=== PATIENT | male | born 1950 | race Caucasian/White ===

== ENCOUNTER 2023-11-09 06:23 | Day surgery (SDC) | payer OTHER ==
--- NOTE | 2023-11-07 15:41 | RAD REPORT ---
EXAM DESCRIPTION: RAD - Chest Pa And Lat (2 Views) - 11/07/2023 3:34 pm CLINICAL HISTORY: Pre op pending hernia repair Chest pain. COMPARISON: <Comparisons> FINDINGS: The lungs are clear. The heart is upper limit of normal in size. No displaced fractures. P robable small hiatal hernia. IMPRESSION: No acute or concerning finding suspected. The USPSTF recommends annual screening for lung cancer with low-dose CT (LDCT) in adults aged 50 to 8 0 years who have a 20 pack-year smoking history and currently smoke or have quit within the past 15 y ears.
[2023-11-07 16:30] LABS: Absolute Eosinophils 0.1 K/uL (0-0.5); Absolute Lymphocytes (CBC) 0.9 K/uL (0.7-4.9); Absolute Monocytes 0.5 K/uL (0.1-1.3); Absolute Neutrophil 3.6 K/uL (1.8-8.0); Eosinophils % 1.4 % (0-4.4); Hematocrit 41.6 % (39.6-49.0); Hemoglobin 14.1 g/dL (13.6-17.9); MCH 32.5 pg (27.0-35.0); MCV 95.4 fL (80-100); MPV 9.4 fL (7.6-11.3); Monocytes % 10.2 % (3.3-12.3); Neutrophils % 69.4 % (41.7-73.7); Platelets 223 thou/uL (152-406); RBC Red Blood Cell Count 4.35 M/uL (4.33-5.43); Red Cell Distribution Width 15.5 % (12.1-15.2)
[2023-11-07 16:50] LABS: Anion Gap 10.7 mEq/L (5.0-15.0); Potassium 3.7 mEq/L (3.5-5.1)
--- NOTE | 2023-11-08 16:17 | EKG ---
Test Date: 2023-11-07 Test Time: 15:10:10 Sampling Expert: MEASUREMENT RESULTS: Intervals: Rate: 74 CO: 242 QRSD: 118 QT: 410 QTc: 455 [place]: P: 19 CO: 242 QRS: -78 T: 77 INTERPRETIVE STATEMENTS: Sinus rhythm with 1st degree AV block Left axis deviation Nonspecific intraventricular conduction delay Abnormal ECG Compared to ECG 09/17/1997 22:44:00 First degree AV block now present Left-axis deviation now present Intraventricular conduction delay now present Ventricular premature complex(es) no longer present Electronically Signed On 11-08-23 16:14:49 CDT by Ernie Cueva
[2023-11-09] MEDS ORDERED: NA CHLORIDE 0.9% 1,000 ML ONE (06:45)
[2023-11-09] MEDS ORDERED: FENTANYL CITR 100 MCG/2 ML ONE (07:28)
[2023-11-09] MEDS ORDERED: ONDANSETRON 4 MG/2 ML VIAL ONE (07:28)
[2023-11-09] MEDS ORDERED: LIDOCAINE 2% MPF 5 ML VIAL ONE (07:28)
[2023-11-09] MEDS ORDERED: ROCURONIUM 50 MG/5 ML VIAL IV ONE ×2 (07:28→08:29)
[2023-11-09] MEDS ORDERED: propofoL 200 MG/20 ML VIAL IV ONE (07:28)
[2023-11-09] MEDS ORDERED: dexAMETHasone 10 MG/ML VIAL ONE (08:00)
[2023-11-09] MEDS: CEFAZOLIN SODIUM 1 GM/VIAL ONE (08:00)
[2023-11-09] MEDS ORDERED: EPHEDRINE SULF 50 MG/ML VIAL ONE (08:01)
[2023-11-09] MEDS ORDERED: CEFAZOLIN SODIUM 1 GM/VIAL ONE (08:01)
[2023-11-09] MEDS ORDERED: GLYCOPYRROLATE 0.2 MG/ML SYR ONE (08:28)
[2023-11-09] MEDS ORDERED: SUGAMMADEX SODIUM 200 MG/2 ML VIAL IV ONE (08:54)
[2023-11-09] MEDS: HYDROMORPHONE HCL 1 MG/ML INJ ONE (09:27)
[2023-11-09] MEDS: FENTANYL CITR 100 MCG/2 ML ONE (09:34)
--- NOTE | 2023-11-09 10:10 | P.BOP ---
Preoperative diagnosis: morbid obesity, bilateral tender inguinal hernias Postoperative diagnosis: same Primary procedure: Laparoscopic repair of right and left inguinal hernias with mesh Estimated blood loss: <10cc Specimen: none Findings: as above Anesthesia: General Complications: None Implants: bilateral #D mesh medium Transferred to: Recovery Room Condition: Good
[2023-11-09 10:14] VITALS: O2SAT 96
[2023-11-09] MEDS ORDERED: TAMSULOSIN 0.4 MG SR CAP ONE (10:42)
[2023-11-09] MEDS: TAMSULOSIN 0.4 MG SR CAP PO ONE (10:45)
[2023-11-09 11:25] VITALS: BP 134/69; TEMP 98
--- NOTE | 2023-11-09 23:51 | OP ---
Date of Procedure: 11/09/2023 Surgeon: Dion Woods MD Preoperative Diagnoses: Morbid obesity, bilateral tender inguinal hernias. Postoperative Diagnoses: Morbid obesity, bilateral tender inguinal hernias. Procedure: Laparoscopic repair of right and left inguinal hernias with mesh. Estimated Blood Loss: Less than 10 cc. Specimen: None. Anesthesia: General plus local. Implant: Bilateral 3D mesh. Complications: None. Indications: This is a case of a 73-year-old patient who comes to us with bilateral inguinal hernias . He was explained the importance of no heavy lifting, avoiding constipation. He is 295 pounds with a BMI of 37.9, with most of his weight on his belly, it is tense and large, so we asked him the impo rtance of looking for professional help with the primary doctor with a weight loss center, even samia arreguin if they have to. At this moment, the hernias are becoming so tender, so we are going to repair that at this moment. We offered him laparoscopic, possible open repair of bilateral inguinal hernias with mesh which include, but not limited to, infection, bleeding, damage to adjacent structures, ane sthesia complication, recurrence, GA, and even . He also understands this may not relieve sympt oms. He might need more than one surgical intervention. He understood and signed a consent. Procedure In Detail: The patient was brought to the operating room, placed in supine position. Anes thesia was done without complication. Abdomen and bilateral groin area and genitalia were prepped an d draped in usual sterile fashion. A time-out was called. An incision was made in the infraumbilica l region. Incision was carried down until we found the anterior rectus sheath on the right side. In cision was carried down until we found the muscle and then retracted muscle laterally to expose the p osterior rectus sheath. The extraperitoneal space was gently developed with the help of blunt dissec tion and a balloon-tipped trocar was placed in that area directed to the pubic symphysis. A laparosc ope was placed in that area. The balloon inflated under direct visualization to create the extraperi toneal space. The balloon was deflated and removed, and then we insufflated the area under direct vi sualization with a camera back in place. Once we had the insufflation, we proceeded to place a 5 mm trocar just above the pubic symphysis and another one long term between the first and the second one. The preperitoneal space was further developed by exposing the inferior epigastric vessels keeping the m anterior. The Cristhian ligament was dissected laterally to the junction with the iliac veins and the dissection continued inferiorly to the iliopubic tract avoiding damage to the femoral branch of the genitofemoral nerve and the lateral femoral cutaneous nerve. The cord structures were skeletonized c arefully. The direct hernia was identified, reduced by gentle traction. There was what looked like a lipoma of the cord, that was also reduced. After we finished with that, then we went to the opposi te side. On the opposite side, once again we kept the epigastric vessels anteriorly. Cristhian ligamen t was dissected laterally to the junction with the iliac veins. The dissection continued inferiorly to the iliopubic tract once again making sure we avoid injury to the femoral branch of the genitofemo ral nerve and the lateral femoral cutaneous nerve. The cord structures were carefully skeletonized. The hernia sac was reduced with what looked like a lipoma present. Once we had that, we proceeded t o stay on the left side first and then placed a 3D mesh in that region, medium size. The mesh was op ened to cover the space direct and indirect. The mesh was secured in place with SorbaFix fixation de vice lateral and superior to the iliopubic tract, and inferior and medial to the Cristhian ligament. On ce we went there, we moved then to the right side. Once again, we introduced a 3D mesh right side in to that region to cover direct and indirect spaces, and once again with SorbaFix secured that mesh in place lateral and superior to the iliopubic tract, and inferior and medial to the Cristhian ligament. After making sure we have adequate hemostasis, the insufflation was stopped and the air allowed to es cape while holding the mesh in place. Before that, we irrigated the area with some local anesthetic. The trocars were removed. #1 Vicryl was used to close the anterior rectus sheath and the skin was approximated with a combination of 3-0 chromic and staple. At the end of the case, the testicles were within the scrotum. The patient tolerated the procedure well. The patient was se nt to recovery in stable condition. MARY/MODL Voice ID: [id number] Report ID: [id number]
--- NOTE | 2023-11-09 23:57 | DS ---
Date of Discharge: 11/09/2023 Diagnoses: Morbid obesity, bilateral tender inguinal hernias. Procedure: Laparoscopic repair of right and left inguinal hernias with mesh. Disposition: Home. Activity: As tolerated. No heavy lifting. Follow up in my office in 1 week, call for appointment [phone]. Keep the area dry for 48 hours, the n may shower. Cold compress to the bilateral inguinal region for 24 hours. Once again, we explained to him and the family the importance of losing weight. We also advised him the importance of ambula tion at home to diminish the chance of DVTs. MARY/FRANCO Voice ID: [id number] Report ID: [id number]
== END 2023-11-09 11:24 | disposition home or self-care (01) ==
LOC: OR 06:23
PROVIDERS: ATTEND Surgery
PROC: 0YUA4JZ Supplement Bilateral Inguinal Region with Synthetic Substitute, Percutaneous Endoscopic Approach (ICD-10-PCS; principal; 2023-11-09 07:30)
DX: K40.20 Bilateral inguinal hernia, without obstruction or gangrene, not specified as recurrent (principal); E66.01 Morbid (severe) obesity due to excess calories; Z68.37 Body mass index [BMI] 37.0-37.9, adult; I10 Essential (primary) hypertension; E11.9 Type 2 diabetes mellitus without complications; K21.9 Gastro-esophageal reflux disease without esophagitis; G47.33 Obstructive sleep apnea (adult) (pediatric)
CPT/HCPCS: 93005; 85025; 80048; 36415; 82947 ×2; 71046; 49650; J2704; J2001; J3010 ×2; J1100; J1170; J2405; J7030; J0690 ×2